=== PATIENT | male | born 1930 | race Caucasian/White ===

== ENCOUNTER 2018-10-31 05:42 | Inpatient (IN) | payer MEDICARE ==
[~2018-10-31] VITALS: Ht 172.7 cm; Wt 85.0 kg
[~2018-10-31 05:42] MED LIST: ASPI325 PO; HYDACE10B PO; LOSA25 PO; SIMV40 PO
[2018-10-31] MEDS ORDERED: LOSA50 PO (06:08)
[2018-10-31] MEDS ORDERED: OMEPRAZOLE20 MG PO (06:09)
[2018-10-31 06:12] LABS: BASOPHILS ABSOLUTE AUTO 0.05 K/mm3 (0.00-0.23); BASOPHILS PERCENT AUTO 0 % (0-2); EOSINOPHILS ABSOLUTE AUTO 0.03 K/mm3 (0.00-0.68); EOSINOPHILS PERCENT AUTO 0 % (0-6); Hematocrit 48.2 % (37.0-53.0); Hemoglobin 15.5 g/dL (13.5-17.5); IMMATURE GRAN ABSOLUTE AUTO 0.07 K/mm3 (0.00-0.10); IMMATURE GRAN PERCENT AUTO 0 % (0-1); LYMPHOCYTES ABSOLUTE AUTO 2.16 K/mm3 (0.84-5.20); LYMPHOCYTES PERCENT AUTO 12 % (21-46); MONOCYTES ABSOLUTE AUTO 1.36 K/mm3 (0.16-1.47); MONOCYTES PERCENT AUTO 7 % (4-13); Mean Corpuscular HGB 30.1 pg (26.0-34.0); Mean Corpuscular HGB Conc 32.2 g/dL (31.5-36.5); Mean Corpuscular Volume 94 fL (80-100); Mean Platelet Volume 10.4 fL (9.1-12.4); NEUTROPHILS ABSOLUTE AUTO 15.12 K/mm3 (1.96-9.15); NEUTROPHILS PERCENT AUTO 80 % (41-73); Platelet Count 233 K/mm3 (150-400); RDW Coefficient Variation 13.4 % (11.7-14.2); RDW Standard Deviation 46.5 fL (35.1-46.3); Red Blood Cell Count 5.15 M/mm3 (4.30-5.90); White Blood Cell Count 18.79 K/mm3 (4.00-11.30)
[2018-10-31 06:32] LABS: Alanine Aminotransfer (ALT/SGP 31 U/L (12-78); Albumin, Blood 3.6 g/dL (3.4-5.0); Alk Phos 63 U/L (50-136); Anion Gap 7 mmol/L (6-16); Aspartate Aminotrans (AST/SGOT 24 U/L (12-37); Bilirubin, Total 0.7 mg/dL (0.1-1.0); Blood Urea Nitrogen 20 mg/dL (8-24); Bun/Creatinine Ratio 19.6 (12.0-20.0); CO2, Blood 27 mmol/L (21-32); Calcium, Blood 9.1 mg/dL (8.5-10.1); Chloride, Blood 103 mmol/L (98-108); Creatinine, Blood 1.02 mg/dL (0.60-1.20); Globulin, Blood 3.6 g/dL (2.2-4.0); Glomerular Filtration Rate >60 (60-); Glucose, Blood 156 mg/dL (70-99); Potassium, Blood 4.2 mmol/L (3.5-5.5); Sodium, Blood 137 mmol/L (136-145); Total Protein, Blood 7.2 g/dL (6.4-8.2); Troponin I 0.054 ng/mL (0.000-0.040)
--- NOTE | 2018-10-31 17:27 | NUR ---
SHIFT SUMMARY 1400 RECEIVED PT TO RM 332 VIA GURNEY FROM ER. PT ADMITTED FOR PNM. RECEIVED REPORT FROM VARINDER ZIMMERMAN. PT NOT FEELING WELL FOR THE PAST WEEK, GETTING WORSE THIS AM. UPON ADMISSION TO ER, PT IN AFIB W/RVR BUT CONVERTED WITH ADENOCARD PER VARINDER. PT ABLE TO TX SELF TO BED WITH SBA, THEN AMBULATED TO BTHRM TO VOID. PT SLIGHTLY UNSTEADY ON HIS OWN, BUT DID MUCH BETTER USING FWW. PT EVEN NOTICED THE DIFFERENCE IN STABILITY USING THE FWW. 1L BOLUS GIVEN UPON ADMISSION. TELE MX PLACED PER ORDERS; SR @ 80 PER MX TECH. PT HAS BEEN RESTING QUIETLY SINCE ADMISSION COMPLETE. PT HAD REPORTED NOT BEING ABLE TO SLEEP FOR THE PAST 3 NIGHTS. HX OF HTN, HLD, COPD, DM AND GERD. BED ALARM ON FOR SAFETY CALL LT IN REACH.
--- NOTE | 2018-10-31 20:37 | NUR ---
PT resting quietly with DTR and Family at bedside. DTR vocal about ER visit this AM, CO triage for Father, support offered. )2 2 l nc to aide breathing. Echo showed EF 45 to 50%. On Tele NSR with PVCS at 70 BPM.
--- NOTE | 2018-11-01 01:06 | NUR ---
called DR Franz prior to midnight to report troponin up 1 point from prior from 0.068 to 0.069 PT denies chest pain. NSR 70s with PVCS per electronic device monitor. No new orders. Continues on 2 l nc
--- NOTE | 2018-11-01 01:09 | NUR ---
tele monitor Awilda called to say PT had SVT rate up to 180 starting at 0049to 0055 then PT converted back to NSR rate 80s with PVCS. PT awake and alert denies chest pain or s/sx. said he was just wiggling in bed. Will update
--- NOTE | 2018-11-01 02:17 | NUR ---
CALLED DR Manrique to report self resolving SVT that lasted 6 minutes. returned to NSR rate 80s with PVCS. Denies acute distress. Low grade temp 99.5 sat 94% on 2 l NC. no new orders continue to monitor.
--- NOTE | 2018-11-01 04:15 | NUR ---
PT continues to rest qietly with occasional nonprod cough. Continues with tele monitor. Echo showed EF 45 to 50% yesterday. Pt had 1 episode of SVT that resolved without intervention. PT is [facility] PT and DTR reports he has to use mailorder rx service and there are frequent interruptions in delivery of cardiac med. DTR expressed desire to transfer from [facility] primary care to private medical provider. Offered SW assist to facilitate community resources and DTR refused. Continues on antibiotics to treat pneumonia.
[2018-11-01 04:51] LABS: BASOPHILS ABSOLUTE AUTO 0.03 K/mm3 (0.00-0.23); BASOPHILS PERCENT AUTO 0 % (0-2); EOSINOPHILS ABSOLUTE AUTO 0.07 K/mm3 (0.00-0.68); EOSINOPHILS PERCENT AUTO 1 % (0-6); Hematocrit 38.9 % (37.0-53.0); Hemoglobin 12.6 g/dL (13.5-17.5); IMMATURE GRAN ABSOLUTE AUTO 0.03 K/mm3 (0.00-0.10); IMMATURE GRAN PERCENT AUTO 0 % (0-1); LYMPHOCYTES ABSOLUTE AUTO 1.36 K/mm3 (0.84-5.20); LYMPHOCYTES PERCENT AUTO 15 % (21-46); MONOCYTES ABSOLUTE AUTO 0.82 K/mm3 (0.16-1.47); MONOCYTES PERCENT AUTO 9 % (4-13); Mean Corpuscular HGB 30.3 pg (26.0-34.0); Mean Corpuscular HGB Conc 32.4 g/dL (31.5-36.5); Mean Corpuscular Volume 94 fL (80-100); Mean Platelet Volume 10.1 fL (9.1-12.4); NEUTROPHILS ABSOLUTE AUTO 6.62 K/mm3 (1.96-9.15); NEUTROPHILS PERCENT AUTO 74 % (41-73); Platelet Count 156 K/mm3 (150-400); RDW Coefficient Variation 13.4 % (11.7-14.2); Red Blood Cell Count 4.16 M/mm3 (4.30-5.90); White Blood Cell Count 8.93 K/mm3 (4.00-11.30)
[2018-11-01 05:13] LABS: Anion Gap 5 mmol/L (6-16); Blood Urea Nitrogen 14 mg/dL (8-24); Bun/Creatinine Ratio 17.3 (12.0-20.0); CO2, Blood 25 mmol/L (21-32); Chloride, Blood 109 mmol/L (98-108); Creatinine, Blood 0.81 mg/dL (0.60-1.20); Glomerular Filtration Rate >60 (60-); Glucose, Blood 112 mg/dL (70-99); Sodium, Blood 139 mmol/L (136-145)
--- NOTE | 2018-11-01 17:27 | NUR ---
PT HAS BEEN ALERT AND ORIENTED THROUGHOUT THIS SHIFT. PT WAS UP IN HIS CHAIR FOR BREAKFAST, THEN RESTED IN BED THROUGHOUT THE REST OF THE SHIFT. PT SELF-AMBULATES TO THE BATHROOM. PT UP WITH PT AND OT AND IT WAS RECOMMENDED THAT HE USE A WALKER WHEN AMBULATING. PT BLOODSUGAR WAS LOW PRIOR TO LUNCH AND DINNER, SUGAR SNACKS PROVIDED. PT LISTED DIABETIC, YET DOESN'T NEED MEDICINAL COVERAGE. PT ON ANTIBIOTICS AND STATES THAT HE FEELS BETTER TODAY. PT PARTICIPATES IN CONVERSATION AND CARE. PT STATES NO ADDITIONAL NEEDS AT THIS TIME. WILL CONTINUE TO MONITOR.
--- NOTE | 2018-11-02 04:56 | NUR ---
88 year old Male [place] was admitted with svt and pneumonia sepis. PT is on room air and tolerating diet and activity. He is up indep in room PT suggests fww walker use athome. Lives with Family DTR and Son in Law supportive. HAs SVT on presentation to ER and converted with adenosine. Pt on tel monitor with no SVT this shift. He has NSR with BBB rate 63. He has BG achs and not on diabetic meds. He had blood glucose of 112 fasting AM and low bg of 59 prelunch and 65 predinner. At HS blood glucose was 85. He usually eats alot of oreo cookies. Denies chest pain or acute distress. HAs cardiology consult for SVT and elevated troponins pending .Non smoker, recieves routine medical care through [facility]. HAs help at home for DC.
[2018-11-02 05:41] LABS: Albumin, Blood 2.4 g/dL (3.4-5.0); Anion Gap 6 mmol/L (6-16); Blood Urea Nitrogen 12 mg/dL (8-24); Bun/Creatinine Ratio 14.3 (12.0-20.0); CO2, Blood 27 mmol/L (21-32); Calcium, Blood 8.4 mg/dL (8.5-10.1); Chloride, Blood 109 mmol/L (98-108); Creatinine, Blood 0.84 mg/dL (0.60-1.20); Glomerular Filtration Rate >60 (60-); Glucose, Blood 98 mg/dL (70-99); Phosphorus, Blood 2.7 mg/dL (2.5-4.9); Potassium, Blood 4.1 mmol/L (3.5-5.5); Sodium, Blood 142 mmol/L (136-145)
[2018-11-02] MEDS ORDERED: METO25 PO (17:15)
[2018-11-02] MEDS ORDERED: AZIT500 PO (17:16)
[2018-11-02] MEDS ORDERED: VISBIOME 112.51 EACH PO (17:16)
[2018-11-02] MEDS ORDERED: CEFU500T30 PO (17:17)
--- NOTE | 2018-11-02 19:12 | NUR ---
DISCHARGE NOTE PT DISCHARGED HOME WITH DAUGHTER AND SON-IN-LAW. PT'S DAUGHTER DRIVING. PT PROVIDED DISCHARGE EDUCATION AND DISCHARGE MEDICATION EDUCATION. PT VERBALIZED UNDERSTANDING OF DISCHARGE INSTRUCTIONS. PT TO BE CONTACTED BY [facility] FOR A STRESS TEST APPOINTMENT, PER DR FORD. PT TAKEN TO THE VEHICLE BY WHEELCHAIR. PT BELONGINGS WITH THE PT. IV REMOVED PRIOR TO PT DISCHARGE.
== END 2018-11-02 18:45 | disposition home or self-care (01) | DRG 871 ==
LOC: DELPENDDIS → ER 05:42 → MEDS 11:32 → ENPENDDIS 11-02 10:25 → MEDS 11-02 18:45
PROVIDERS: Emergency Medicine; ADMIT Internal Medicine
DX: A41.9 Sepsis, unspecified organism (principal); J18.9 Pneumonia, unspecified organism; J96.01 Acute respiratory failure with hypoxia; I21.A1 Myocardial infarction type 2; I47.1 Supraventricular tachycardia; J44.0 Chronic obstructive pulmonary disease with (acute) lower respiratory infection; R65.20 Severe sepsis without septic shock; E78.5 Hyperlipidemia, unspecified; I10 Essential (primary) hypertension; K21.9 Gastro-esophageal reflux disease without esophagitis; Z86.73 Personal history of transient ischemic attack (TIA), and cerebral infarction without residual deficits; E11.9 Type 2 diabetes mellitus without complications; Z87.891 Personal history of nicotine dependence
CPT/HCPCS: 36415; 71046; 80048; 80053; 80069; 82947; 83036; 83605; 83735; 84484; 85025; 87040; 93005; 93010; 93306; 94760; 96361; 96365; 96366; 96368; 96375; 97116; 97162; 97165; 97530; 97535; 99285-25; J0153; J0456; J0696; J1650; J7030; J7050

== ENCOUNTER 2021-04-21 00:11 | Emergency (ER) | payer MEDICARE, OTHER ==
[~2021-04-21] VITALS: Ht 162.6 cm; Wt 83.0 kg
[~2021-04-21 00:11] MED LIST changes: +AZIT500 PO; +CEFU500T30 PO; +LOSA50 PO; +METO25 PO; +OMEPRAZOLE20 MG PO; +VISBIOME 112.51 EACH PO
[2021-04-21 01:02] LABS: BASOPHILS ABSOLUTE AUTO 0.04 K/mm3 (0.00-0.23); BASOPHILS PERCENT AUTO 0 % (0-2); EOSINOPHILS ABSOLUTE AUTO 0.01 K/mm3 (0.00-0.68); EOSINOPHILS PERCENT AUTO 0 % (0-6); Hematocrit 44.8 % (37.0-53.0); Hemoglobin 14.6 g/dL (13.5-17.5); IMMATURE GRAN ABSOLUTE AUTO 0.05 K/mm3 (0.00-0.10); IMMATURE GRAN PERCENT AUTO 1 % (0-1); LYMPHOCYTES ABSOLUTE AUTO 1.16 K/mm3 (0.84-5.20); LYMPHOCYTES PERCENT AUTO 11 % (21-46); MONOCYTES ABSOLUTE AUTO 0.52 K/mm3 (0.16-1.47); MONOCYTES PERCENT AUTO 5 % (4-13); Mean Corpuscular HGB 29.5 pg (26.0-34.0); Mean Corpuscular HGB Conc 32.6 g/dL (31.5-36.5); Mean Corpuscular Volume 91 fL (80-100); Mean Platelet Volume 10.4 fL (9.1-12.4); NEUTROPHILS ABSOLUTE AUTO 9.31 K/mm3 (1.96-9.15); NEUTROPHILS PERCENT AUTO 84 % (41-73); Platelet Count 223 K/mm3 (150-400); RDW Coefficient Variation 13.2 % (11.7-14.2); RDW Standard Deviation 43.4 fL (35.1-46.3); Red Blood Cell Count 4.95 M/mm3 (4.30-5.90); White Blood Cell Count 11.09 K/mm3 (4.00-11.30)
[2021-04-21 01:05] LABS: Calcium, Ionized (POC) 1.14 mmol/L (1.10-1.46); Chloride (POC) 99 mmol/L (98-108); Creatinine (POC) 0.9 mg/dL (0.8-1.3); Glucose (ISTAT POC) 163 mg/dL (70-99); Hemoglobin (POC) 14.6 g/dL (13.5-17.5); Potassium (POC) 4.1 mmol/L (3.5-5.5); Sodium (POC) 135 mmol/L (135-148); Total CO2 (POC) 25 mmol/L (21-32)
[2021-04-21 01:14] LABS: Alanine Aminotransfer (ALT/SGP 26 U/L (12-78); Albumin, Blood 3.5 g/dL (3.4-5.0); Alk Phos 52 U/L (50-136); Anion Gap 12 mmol/L (6-16); Aspartate Aminotrans (AST/SGOT 27 U/L (12-37); Bilirubin, Total 0.5 mg/dL (0.1-1.0); Blood Urea Nitrogen 12 mg/dL (8-24); Bun/Creatinine Ratio 14.9 (12.0-20.0); CO2, Blood 25 mmol/L (21-32); Chloride, Blood 100 mmol/L (98-108); Globulin, Blood 3.5 g/dL (2.2-4.0); Glomerular Filtration Rate >60 (60-); Glucose, Blood 167 mg/dL (70-99); Potassium, Blood 4.5 mmol/L (3.5-5.5); Sodium, Blood 137 mmol/L (136-145)
[2021-04-21] MEDS ORDERED: ONDA4ODT MM (05:32)
[2021-04-22] MEDS ORDERED: ACET325 PO (04:04)
[2021-04-22] MEDS ORDERED: ONDA4ODT MM (04:05)
== END 2021-04-21 06:17 | disposition home or self-care (01) ==
LOC: ER 00:11
PROVIDERS: Emergency Medicine
DX: R11.2 Nausea with vomiting, unspecified (principal); R10.84 Generalized abdominal pain; J44.9 Chronic obstructive pulmonary disease, unspecified; E11.9 Type 2 diabetes mellitus without complications; I10 Essential (primary) hypertension; Z79.899 Other long term (current) drug therapy; Z88.8 Allergy status to other drugs, medicaments and biological substances
CPT/HCPCS: 36415; 74177; 80047; 80053; 83690; 84484; 85014; 85025; 86850; 86900; 86901; 93005; 93010; J2270; J2405; Q9967

== ENCOUNTER 2021-04-21 17:40 | Inpatient (IN) | payer OTHER ==
[~2021-04-21] VITALS: Ht 162.6 cm; Wt 81.7 kg
[~2021-04-21 17:40] MED LIST changes: +ONDA4ODT MM
[2021-04-21 18:08] LABS: BASOPHILS ABSOLUTE AUTO 0.02 K/mm3 (0.00-0.23); BASOPHILS PERCENT AUTO 0 % (0-2); EOSINOPHILS PERCENT AUTO 0 % (0-6); Hematocrit 45.2 % (37.0-53.0); Hemoglobin 14.5 g/dL (13.5-17.5); IMMATURE GRAN ABSOLUTE AUTO 0.04 K/mm3 (0.00-0.10); IMMATURE GRAN PERCENT AUTO 0 % (0-1); LYMPHOCYTES ABSOLUTE AUTO 0.74 K/mm3 (0.84-5.20); LYMPHOCYTES PERCENT AUTO 6 % (21-46); MONOCYTES PERCENT AUTO 7 % (4-13); Mean Corpuscular HGB 29.2 pg (26.0-34.0); Mean Corpuscular HGB Conc 32.1 g/dL (31.5-36.5); Mean Corpuscular Volume 91 fL (80-100); Mean Platelet Volume 9.8 fL (9.1-12.4); NEUTROPHILS ABSOLUTE AUTO 11.36 K/mm3 (1.96-9.15); NEUTROPHILS PERCENT AUTO 87 % (41-73); Platelet Count 230 K/mm3 (150-400); RDW Coefficient Variation 13.2 % (11.7-14.2); RDW Standard Deviation 44.2 fL (35.1-46.3); Red Blood Cell Count 4.97 M/mm3 (4.30-5.90); White Blood Cell Count 13.06 K/mm3 (4.00-11.30)
[2021-04-21 18:39] LABS: Influenza A, PCR NEGATIVE (NEGATIVE); Influenza B, PCR NEGATIVE (NEGATIVE); Resp Syncytial Virus, PCR NEGATIVE (NEGATIVE)
[2021-04-21 18:41] LABS: SARS-Cov-2 (COVID-19) PCR, MMC POSITIVE (NEGATIVE)
[2021-04-21 18:46] LABS: Alanine Aminotransfer (ALT/SGP 24 U/L (12-78); Albumin, Blood 3.7 g/dL (3.4-5.0); Alk Phos 56 U/L (50-136); Anion Gap 8 mmol/L (6-16); Aspartate Aminotrans (AST/SGOT 20 U/L (12-37); Bilirubin, Total 0.7 mg/dL (0.1-1.0); Blood Urea Nitrogen 14 mg/dL (8-24); CO2, Blood 27 mmol/L (21-32); Chloride, Blood 101 mmol/L (98-108); Creatinine, Blood 0.94 mg/dL (0.60-1.20); Globulin, Blood 3.8 g/dL (2.2-4.0); Glomerular Filtration Rate >60 (60-); Glucose, Blood 143 mg/dL (70-99); Potassium, Blood 4.2 mmol/L (3.5-5.5); Sodium, Blood 136 mmol/L (136-145); Total Protein, Blood 7.5 g/dL (6.4-8.2)
--- NOTE | 2021-04-21 23:13 | NUR ---
PATIENT ARRIVED TO UNIT ABOT 2220, ALERT AND ORIENTED X'4. COMPLAINS OF NAUSEA WITH NO VOMITTING. RESPIRATIONS EVEN AND UNLABORED, DENIES CP OR SOB. O2@4L VIA N/C, BILATERAL LUNG SOUNDS DIMINISHED. 1 ASSIST FOR TRANSFERS DUE TO WEAKNESS. ORIENTED PATIENT TO ROOM AND CALL CLEMENT, VERBALIZED UNDERSTANDING. SAFETY MAINTAINED.
[2021-04-22] MEDS ORDERED: ACET325 PO (04:04)
[2021-04-22] MEDS ORDERED: ONDA4ODT MM (04:05)
[2021-04-22 05:34] LABS: BASOPHILS ABSOLUTE AUTO 0.01 K/mm3 (0.00-0.23); BASOPHILS PERCENT AUTO 0 % (0-2); EOSINOPHILS PERCENT AUTO 0 % (0-6); Hematocrit 44.7 % (37.0-53.0); Hemoglobin 14.1 g/dL (13.5-17.5); IMMATURE GRAN ABSOLUTE AUTO 0.04 K/mm3 (0.00-0.10); IMMATURE GRAN PERCENT AUTO 0 % (0-1); LYMPHOCYTES ABSOLUTE AUTO 0.93 K/mm3 (0.84-5.20); LYMPHOCYTES PERCENT AUTO 8 % (21-46); MONOCYTES ABSOLUTE AUTO 1.06 K/mm3 (0.16-1.47); MONOCYTES PERCENT AUTO 9 % (4-13); Mean Corpuscular HGB 29.3 pg (26.0-34.0); Mean Corpuscular HGB Conc 31.5 g/dL (31.5-36.5); Mean Corpuscular Volume 93 fL (80-100); Mean Platelet Volume 10.8 fL (9.1-12.4); NEUTROPHILS ABSOLUTE AUTO 10.39 K/mm3 (1.96-9.15); NEUTROPHILS PERCENT AUTO 84 % (41-73); Platelet Count 222 K/mm3 (150-400); RDW Coefficient Variation 13.3 % (11.7-14.2); RDW Standard Deviation 45.6 fL (35.1-46.3); Red Blood Cell Count 4.82 M/mm3 (4.30-5.90); White Blood Cell Count 12.43 K/mm3 (4.00-11.30)
--- NOTE | 2021-04-22 05:40 | NUR ---
ALERT5 AND ORIENTED X'S 4. DENIED FURTHER NAUSEA/VOMITTING THROUGH NIGHT. SLEPT WELL. DENIED SOB OR CP. 02@4L VIA N/C, RESPIRATIONS EVEN AND UNLABORED. SAFTY MAINTAINED, CALL CLEMENT IN REACH.
[2021-04-22 06:01] LABS: Anion Gap 9 mmol/L (6-16); Blood Urea Nitrogen 14 mg/dL (8-24); Bun/Creatinine Ratio 17.2 (12.0-20.0); CO2, Blood 26 mmol/L (21-32); Calcium, Blood 8.7 mg/dL (8.5-10.1); Chloride, Blood 103 mmol/L (98-108); Creatinine, Blood 0.81 mg/dL (0.60-1.20); Glomerular Filtration Rate >60 (60-); Glucose, Blood 139 mg/dL (70-99); Potassium, Blood 3.8 mmol/L (3.5-5.5); Sodium, Blood 138 mmol/L (136-145)
--- NOTE | 2021-04-22 16:22 | NUR ---
0933- NOTIFIED DR PRICE THAT PT HAS HAD MIN PO INTAKE AND NO IV CURRENT, ONE TIME ORDER FOR ODT ZOFRAN FOR NAUSEA. ALSO IF SHE WANTED TO START IVF RELATED TO NO ORAL INTAKE OVER NIGHT
--- NOTE | 2021-04-22 16:24 | NUR ---
NOTIFIED DR WOLFF 1600 OF PT COMPLAINT OF CHEST PRESURE THAT HAS COME ON AGAIN, SIMILIAR TO THAT AT ADMIT. VS REMAIN WITHIN PTS NORMAL PARAMETER. NO DYSPNEA NOTED, SATS 93% 3L O2. PT NOW TOLERATING SMALL AMTS OF CLEARS AND FULL PUDDING DIET, DENIES NAUSEA. PT NAPPING MOST OF THE DAY, AMBULATES INDEPENDANT AND STEADY TO BATHROOM TO VOID.
--- NOTE | 2021-04-22 18:27 | NUR ---
SUMMARY- PT A/O X4, FEELS WEAK AND SLEEPY. C/O CHEST PRESURE LOWER RIBCAGE, LESSENED THIS MORNING AND INCREASED IN THE AFTERNOON. LUNG SOUNDS DIM IN BASES, O2 3LNC, SATS 93% ROOM AIR. PT AMBULATES TO BATHROOM. OXYGEN FREQ DISPLACED BY PT, ORDERED CONT PULSE OX TO GILBERTO MORE CLOSELY. PT HAS HAD DECREASED APPETITE ALL DAY AND NAUSEA INTERMITTANT. MEDICATED WITH ZOFRAN THIS AM WITH GOOD RELEIF. PT WAS ABLE TO LOLERATE SOME CLEARS AND PUDDING. PM ZOFRAN BEFORE DINNER BUT PT UNABLE TO EAT OR DRINK MUCH. MEDICATED WITH PO LASIX ONE TIME OREDER, INSTRUCTED PT TO VOID IN URINAL BUT FORGOT AND FLUSHED. WILL CONT TO ATTEMPT ACCURATE I/O. PT AMBULATES TO BATHROOM INDEPENDANT, STATES HE FEELS STEADY BUT TAKES OFF OXYGEN BRIEFLY AND REPLACES.
[2021-04-23 05:17] LABS: BASOPHILS PERCENT AUTO 0 % (0-2); EOSINOPHILS PERCENT AUTO 0 % (0-6); Hemoglobin 12.6 g/dL (13.5-17.5); IMMATURE GRAN ABSOLUTE AUTO 0.02 K/mm3 (0.00-0.10); IMMATURE GRAN PERCENT AUTO 0 % (0-1); LYMPHOCYTES ABSOLUTE AUTO 0.84 K/mm3 (0.84-5.20); LYMPHOCYTES PERCENT AUTO 11 % (21-46); MONOCYTES ABSOLUTE AUTO 0.91 K/mm3 (0.16-1.47); MONOCYTES PERCENT AUTO 12 % (4-13); Mean Corpuscular HGB 29.3 pg (26.0-34.0); Mean Corpuscular HGB Conc 31.5 g/dL (31.5-36.5); Mean Corpuscular Volume 93 fL (80-100); Mean Platelet Volume 10.3 fL (9.1-12.4); NEUTROPHILS ABSOLUTE AUTO 5.92 K/mm3 (1.96-9.15); NEUTROPHILS PERCENT AUTO 77 % (41-73); Platelet Count 192 K/mm3 (150-400); RDW Coefficient Variation 13.6 % (11.7-14.2); RDW Standard Deviation 45.6 fL (35.1-46.3); White Blood Cell Count 7.69 K/mm3 (4.00-11.30)
[2021-04-23 05:52] LABS: Albumin, Blood 2.6 g/dL (3.4-5.0); Anion Gap 6 mmol/L (6-16); Blood Urea Nitrogen 19 mg/dL (8-24); Bun/Creatinine Ratio 22.4 (12.0-20.0); CO2, Blood 30 mmol/L (21-32); Calcium, Blood 8.1 mg/dL (8.5-10.1); Chloride, Blood 105 mmol/L (98-108); Creatinine, Blood 0.85 mg/dL (0.60-1.20); Glomerular Filtration Rate >60 (60-); Glucose, Blood 113 mg/dL (70-99); Phosphorus, Blood 3.4 mg/dL (2.5-4.9); Potassium, Blood 3.8 mmol/L (3.5-5.5); Sodium, Blood 141 mmol/L (136-145)
--- NOTE | 2021-04-23 07:12 | NUR ---
Alert and oriented x'4. Slept well through night. respirations even and unlabored, O2@3L via n/c, denies SOB. Medicated with Zofram and tylenol due to generalized pain and nausea, effective relief. Resting peacefully in bed, safety maintained.
--- NOTE | 2021-04-23 18:21 | NUR ---
SUMMARY- PT A/O X4- STATES HE FEELS WIPED OUT AND HAS CAUGHT UP ON SLEEP. PT INDEPENDANT IN ROOM AND VERY STEADY ON FEET, GOOD STRENGTH. VOIDING AND HAD A BM THIS AM. STATES TIGHTNESS IN MIDCHEST AND RADIATES OUT COMES AND GOES BUT OVERALL IMPROVED FROM ADMIT. ECHO PERFORMED TODAY, AWAITING RESLUTS. PT HAD NO NAUSEA TODAY. TOLERATING BLAND DIET OF HOT CEREAL THIS AM, PUREED POTAOTES AND CAROTS FOR LUNCH, BITES OF SOUP AND MASHED POTATOES FOR DINNER. A WHOLE BOTTLE OF GATORAID T/O THE DAY. OF NOTE, HR THIS AM 70 BEFORE AM MEDS INCLUDING METORPOLOL 25MG- AT 1000 HR 47 AT LOWEST WHILE PT RESTING. MOSTLY 50-55. DOCUMENTED IN VS.
--- NOTE | 2021-04-24 16:19 | NUR ---
SHIFT SUMMARY THE PATIENT IS ALERT AND ORIENTED X4, PLEASANT AND COOPERATIVE WITH CARE. THE PATIENT IS INDEPENDENT IN THEIR ROOM. THE PATIENT IS ON 2LPM VIA NASAL CANNULA. NO COMPLAINTS OF NAUSEA OR VOMITING THIS SHIFT. THE PATIENT WAS ABLE TO EAT MEALS WITHOUT ISSUE THIS SHIFT. METOPROLOL HELD FOR LOW HR PARAMATERS. HYDRALIZINE GIVEN ONCE. VSS. CALL LIGHT WITHIN REACH. NOTHING FURTHER TO REPORT.
--- NOTE | 2021-04-25 05:00 | NUR ---
SHIFT SUMMARY Patient AAOX3, Vital stable, no acute distress noted. He slept well throughout the night. No complaint of pain, nausea or vomitting. He is on O2@3 L VIA N/C. Independent in the room. Bed in lowest position, call light within reach. We will continue to monitor for any acute changes.
[2021-04-25] MEDS ORDERED: METO25ER PO (10:20)
[2021-04-25] MEDS ORDERED: DECADRON6 M1 PO (10:22)
--- NOTE | 2021-04-25 15:52 | NUR ---
TRESSA DISCHARGED THIS SHIFT AT 1345 VIA WHEELCHAIR TO CAR WITH A FAMILY MEMBER AND GRIFFIN IZAGUIRRE. THE PATIENT VERBALIZED UNDERSTANDING OF THE DISCHARGE INSTRUCTIONS GIVEN. VSS. NOTHING FURTHER TO REPORT.
== END 2021-04-25 14:10 | disposition home or self-care (01) | DRG 177 ==
LOC: ER 17:40 → MEDS 22:04 → ENPENDDIS 04-25 08:59 → MEDS 04-25 14:10
PROVIDERS: Internal Medicine; Physician Assistant; ADMIT Family Medicine
PROC: 8E0ZXY6 Isolation (ICD-10-PCS; principal; 2021-04-21)
PROC: XW033E5 Introduction of Remdesivir Anti-infective into Peripheral Vein, Percutaneous Approach, New Technology Group 5 (ICD-10-PCS; 2021-04-21)
PROC: 3E0DX3Z Introduction of Anti-inflammatory into Mouth and Pharynx, External Approach (ICD-10-PCS; 2021-04-22)
DX: U07.1 COVID-19 (principal); J96.01 Acute respiratory failure with hypoxia; N17.9 Acute kidney failure, unspecified; D72.829 Elevated white blood cell count, unspecified; I11.0 Hypertensive heart disease with heart failure; I50.9 Heart failure, unspecified; R73.9 Hyperglycemia, unspecified; M54.9 Dorsalgia, unspecified; J44.9 Chronic obstructive pulmonary disease, unspecified; K21.9 Gastro-esophageal reflux disease without esophagitis; R11.2 Nausea with vomiting, unspecified; G89.29 Other chronic pain; Z28.21 Immunization not carried out because of patient refusal; Z86.73 Personal history of transient ischemic attack (TIA), and cerebral infarction without residual deficits; Z88.8 Allergy status to other drugs, medicaments and biological substances; Z79.899 Other long term (current) drug therapy; Z79.82 Long term (current) use of aspirin; Z98.890 Other specified postprocedural states; Z87.891 Personal history of nicotine dependence
CPT/HCPCS: 0241U; 36415; 71045; 80048; 80053; 80069; 82947; 83735; 83880; 84145; 84484; 85025; 93306; 94760; 94761; 94762; 96374; 99284-25; A9270; J0248; J1650; J1815; J2405; J2550; J7030; J7040; J7050